=== PATIENT | female | born 1980 | race Caucasian/White ===

== ENCOUNTER 2020-04-14 12:02 | Emergency (ER) | payer OTHER ==
[~2020-04-14] VITALS: Ht 162.6 cm; Wt 127.9 kg
[~2020-04-14 12:02] MED LIST: ACYCLOVIR 200200 MG PO; APAP500 PO; AZITHROMYCIN250 MG PO; CALCIUM500 MG PO; CENTRUM SILVER1 EAC4 PO; COLACE 100 MG100 MG PO; DERMOPLAST SPRA56 ML; FLEXERIL PO; HYDROCODON-ACE1 EAC8 PO; HYDROCODONE-AP1 EAC6 PO; HYDROCORTISONE30 G9 RE; IBUPROFEN 800800 M1 PO; IRON325; LANSOPRAZOLE30 MG PO; LATUDA40 MG PO; LIPITOR 20 MG T20 M1 PO; LISINOPRIL2.5 M1 PO; LYRICA150 MG PO; MACROBID 100 M100 M1 PO; MAGNESIUM250 M1 PO; MARLISSA1 EACH PO; METFORMIN HCL500 MG PO; NORFLEX100 MG PO; POTASSIUM20 PO; PRENATAL; PROMETHAZINE12.5 M1 PO; SERTRALINE HCL100 MG PO; TESSALON PERLE100 MG PO; TOPAMAX100 MG PO; TUCKS MEDICATE1 EAC1; ULTRAM 50MG TAB50 MG PO; VITAMIN D1000 UNI1 PO; XANAX 0.5 MG0.5 MG PO; ZPAK PO
[2020-04-14 12:35] LABS: URINE BILIRUBIN NEGATIVE (Negative); URINE BLOOD 1+ (Negative); URINE CLARITY CLEAR; URINE COLOR YELLOW; URINE GLUCOSE-RANDOM* NEGATIVE (Negative); URINE KETONES NEGATIVE (Negative); URINE LEUKOCYTES-REFLEX NEGATIVE (Negative); URINE NITRITE-REFLEX NEGATIVE (Negative); URINE PROTEIN (DIPSTICK) NEGATIVE (Negative); URINE SPECIFIC GRAVITY >= 1.030 (1.005-1.035)
[2020-04-14 12:46] LABS: SQUAMOUS 0-3 Few /LPF (0-3)
[2020-04-14 12:47] LABS: CRYSTALS None Seen /LPF (None Seen); HYALINE CASTS 0-3 Few /LPF (None Seen); MUCUS 4-6 Moderate strn/LPF (None Seen)
[2020-04-14 12:48] LABS: URINE WBC-REFLEX 0-5 Rare /HPF (0-5)
[2020-04-14 12:49] LABS: BACTERIA-REFLEX 1-9 Few /HPF (None Seen); URINE RBC 0-2 Rare /HPF (0-2)
[2020-04-14 12:51] LABS: ABSOLUTE NEUTROPHILS 12.3 thou/uL (1.4-8.2); BASOPHILS 0.4 % (0.0-2.0); EOSINOPHILS 0.2 % (0.0-3.0); HEMATOCRIT 37.7 % (37.0-47.0); HEMOGLOBIN 12.2 gm/dL (12.0-15.0); LYMPHOCYTES 7.9 % (24.0-44.0); MCHC 32.3 g/dL (28.0-37.0); MCV 89.7 fL (80.0-100.0); MONOCYTES 3.6 % (1.0-8.0); PLATELET COUNT 196 thou/uL (150-400); POLYS 87.9 % (36.0-66.0); RDW 13.6 % (10.5-14.5)
[2020-04-14 13:06] LABS: ALBUMIN 3.1 g/dL (3.4-5.0); ANION GAP 12 mmol/L (7-16); BUN 9 mg/dL (7-18); CALCIUM 8.5 mg/dL (8.5-10.1); CHLORIDE 106 mmol/L (98-107); CO2 20 mmol/L (21-32); CREATININE 0.9 mg/dL (0.6-1.0); DIRECT BILIRUBIN < 0.1 mg/dL (<0.1-0.2); GLUCOSE 243 mg/dL (74-106); LIPASE 72 U/L (73-393); SGOT 15 U/L (15-37); SGPT 19 U/L (14-59); SODIUM 138 mmol/L (136-145); TOTAL BILIRUBIN 0.3 mg/dL (0.2-1.0); TOTAL PROTEIN 6.8 g/dL (6.4-8.2)
[2020-04-14 13:11] LABS: POTASSIUM 2.8 mmol/L (3.5-5.1)
[2020-04-14] MEDS ORDERED: KLOR-CON M2020 MEQ PO (15:18)
[2020-04-14] MEDS ORDERED: LEVOFLOXACIN750 MG PO (15:18)
[2020-04-14 16:06] VITALS: BP 120/67
== END 2020-04-14 16:30 | disposition home or self-care (01) ==
LOC: ER 12:02
PROVIDERS: Nurse Practitioner
DX: N39.0 Urinary tract infection, site not specified (principal); E87.6 Hypokalemia; J18.9 Pneumonia, unspecified organism; E87.2 Acidosis; E11.9 Type 2 diabetes mellitus without complications; I10 Essential (primary) hypertension; E78.00 Pure hypercholesterolemia, unspecified; K21.9 Gastro-esophageal reflux disease without esophagitis; Z98.890 Other specified postprocedural states; Z90.49 Acquired absence of other specified parts of digestive tract; Z79.2 Long term (current) use of antibiotics; Z79.899 Other long term (current) drug therapy

== ENCOUNTER 2020-05-07 13:21 | Emergency (ER) | payer OTHER ==
[~2020-05-07] VITALS: Ht 162.6 cm; Wt 127.5 kg
[~2020-05-07 13:21] MED LIST changes: +KLOR-CON M2020 MEQ PO; +LEVOFLOXACIN750 MG PO
[2020-05-07 14:42] LABS: URINE BILIRUBIN NEGATIVE (Negative); URINE BLOOD NEGATIVE (Negative); URINE CLARITY CLEAR; URINE COLOR YELLOW; URINE GLUCOSE-RANDOM* NEGATIVE (Negative); URINE KETONES NEGATIVE (Negative); URINE LEUKOCYTES-REFLEX NEGATIVE (Negative); URINE NITRITE-REFLEX NEGATIVE (Negative); URINE PROTEIN (DIPSTICK) NEGATIVE (Negative); URINE UROBILINOGEN 0.2 E.U./dl (0.2-1.0)
[2020-05-07 15:30] VITALS: BP 122/76
--- NOTE | 2020-05-10 10:22 | EKG ---
[address] [address] ELECTROCARDIOGRAM REPORT Name: DIANA BROWNING Room #: [facility]#: [id number] Admission: 05/07/20 Attend Phys: Discharge: 05/07/20 Date of : 78 Report #: [id number] [facility] ED Test Date: 2020-05-07 Test Time: 13:26:34 Pat Name: DIANA BROWNING Department: Room: Gender: F Shear Tender: GAYLA : 1980 Requested By: Ronald Murcia Order Number: [id number] MD: Ross Bartholomew Measurements Intervals [place] Rate: 96 P: 41 [place]: 141 QRS: 10 QRSD: 88 T: 27 QT: 343 QTc: 434 Interpretive Statements Sinus rhythm Compared to ECG 03/14/2020 10:18:22 Sinus tachycardia no longer present Prolonged QT interval no longer present Electronically Signed On 05-10-2020 10:21:45 COMMERCIAL MANAGER by Ross Bartholomew [email or web address] <ELECTRONICALLY SIGNED> By: Ross Bartholomew MD, [facility] 05/10/20 1021 1326 1326 Ross Bartholomew MD, FACC /EPI
== END 2020-05-07 15:31 | disposition home or self-care (01) ==
LOC: ER 13:21
PROVIDERS: Nurse Practitioner
DX: R07.89 Other chest pain (principal); R05 Cough; R06.00 Dyspnea, unspecified; E11.9 Type 2 diabetes mellitus without complications; K21.9 Gastro-esophageal reflux disease without esophagitis; I10 Essential (primary) hypertension; E78.00 Pure hypercholesterolemia, unspecified; Z20.822 Contact with and (suspected) exposure to COVID-19; Z79.2 Long term (current) use of antibiotics; Z79.899 Other long term (current) drug therapy

== ENCOUNTER 2020-06-19 13:24 | Emergency (ER) | payer OTHER ==
[~2020-06-19] VITALS: Ht 162.6 cm; Wt 127.0 kg
[2020-06-19 13:49] LABS: URINE BILIRUBIN NEGATIVE (Negative); URINE BLOOD NEGATIVE (Negative); URINE CLARITY SL CLOUDY; URINE COLOR YELLOW; URINE GLUCOSE-RANDOM* NEGATIVE (Negative); URINE KETONES NEGATIVE (Negative); URINE NITRITE-REFLEX NEGATIVE (Negative); URINE PROTEIN (DIPSTICK) NEGATIVE (Negative); URINE SPECIFIC GRAVITY 1.025 (1.005-1.035); URINE UROBILINOGEN 0.2 E.U./dl (0.2-1.0)
[2020-06-19 13:50] LABS: URINE LEUKOCYTES-REFLEX 2+ (Negative)
[2020-06-19 13:54] LABS: BACTERIA-REFLEX 1-9 Few /HPF (None Seen); CASTS None Seen /LPF (None Seen); CRYSTALS None Seen /LPF (None Seen); SQUAMOUS >10 Many /LPF (0-3); URINE RBC None Seen /HPF (0-2); URINE WBC-REFLEX 0-5 Rare /HPF (0-5)
[2020-06-19 14:25] LABS: ABSOLUTE NEUTROPHILS 14.9 thou/uL (1.4-8.2); BASOPHILS 0.1 % (0.0-2.0); EOSINOPHILS 0.2 % (0.0-3.0); HEMATOCRIT 34.4 % (37.0-47.0); HEMOGLOBIN 11.4 gm/dL (12.0-15.0); LYMPHOCYTES 7.5 % (24.0-44.0); MCH 28.9 pg (26.0-34.0); MCHC 33.1 g/dL (28.0-37.0); MCV 87.3 fL (80.0-100.0); PLATELET COUNT 201 thou/uL (150-400); POLYS 88.2 % (36.0-66.0); RBC 3.94 mil/uL (4.20-5.00); RDW 13.5 % (10.5-14.5); WBC 16.8 thou/uL (4.0-11.0)
[2020-06-19 14:27] LABS: ANION GAP 14 mmol/L (7-16); BUN 10 mg/dL (7-18); CALCIUM 8.2 mg/dL (8.5-10.1); CHLORIDE 104 mmol/L (98-107); CO2 21 mmol/L (21-32); GLUCOSE 174 mg/dL (74-106); POTASSIUM 3.1 mmol/L (3.5-5.1); SODIUM 139 mmol/L (136-145)
[2020-06-19 14:38] LABS: ALBUMIN 2.9 g/dL (3.4-5.0); AMYLASE 55 U/L (25-115); DIRECT BILIRUBIN < 0.1 mg/dL (<0.1-0.2); LIPASE 61 U/L (73-393); MAGNESIUM 1.6 mg/dL (1.8-2.4); PHOSPHORUS 2.8 mg/dL (2.6-4.7); SGOT 12 U/L (15-37); SGPT 18 U/L (14-59); TOTAL BILIRUBIN 0.4 mg/dL (0.2-1.0); TOTAL PROTEIN 6.8 g/dL (6.4-8.2); TROPONIN-I <0.06 ng/mL (<0.06)
[2020-06-19] MEDS ORDERED: VANACOF DM LIQ240 ML PO (16:41)
[2020-06-19] MEDS ORDERED: TYLENOL325 M1 PO (16:41)
[2020-06-19] MEDS ORDERED: NAPROSYN500 MG PO (16:41)
[2020-06-19] MEDS ORDERED: DOXYCYCLINE 10100 MG PO (16:41)
[2020-06-19 16:52] VITALS: BP 105/58
--- NOTE | 2020-06-20 11:29 | EKG ---
[address] [address] ELECTROCARDIOGRAM REPORT Name: DIANA BROWNING Room #: [facility]#: [id number] Admission: 06/19/20 Attend Phys: Discharge: 06/19/20 Date of : 78 Report #: [id number] [facility] ED Test Date: 2020-06-19 Test Time: 14:19:14 Pat Name: DIANA BROWNING Department: Room: Gender: F Motor Patrol Operator: GAYLA : 1980 Requested By: Bill Petersen Order Number: [id number] MD: Ross Bartholomew Measurements Intervals [place] Rate: 98 P: 41 [place]: 135 QRS: 17 QRSD: 93 T: 13 QT: 334 QTc: 427 Interpretive Statements Sinus rhythm Compared to ECG 05/07/2020 13:26:34 No significant changes Electronically Signed On 06-20-2020 11:28:52 CDT by Ross Bartholomew [email or web address] <ELECTRONICALLY SIGNED> By: Ross Bartholomew MD, [facility] 06/20/20 1128 1419 1419 Ross Bartholomew MD, FACC /EPI
== END 2020-06-19 16:52 | disposition home or self-care (01) ==
LOC: ER 13:24
PROVIDERS: Emergency Medicine
DX: J18.9 Pneumonia, unspecified organism (principal); I10 Essential (primary) hypertension; E11.9 Type 2 diabetes mellitus without complications; K21.9 Gastro-esophageal reflux disease without esophagitis; E78.5 Hyperlipidemia, unspecified; Z90.49 Acquired absence of other specified parts of digestive tract; Z79.2 Long term (current) use of antibiotics; Z79.899 Other long term (current) drug therapy

== ENCOUNTER 2020-07-03 12:15 | Inpatient (IN) | payer OTHER ==
[~2020-07-03] VITALS: Ht 162.6 cm; Wt 132.9 kg
[~2020-07-03 12:15] MED LIST changes: +DOXYCYCLINE 10100 MG PO; +NAPROSYN500 MG PO; +TYLENOL325 M1 PO; +VANACOF DM LIQ240 ML PO
[2020-07-03 12:33] VITALS: BP 102/59
[2020-07-03 13:03] LABS: ABSOLUTE NEUTROPHILS 14.2 thou/uL (1.4-8.2); BASOPHILS 0.3 % (0.0-2.0); EOSINOPHILS 0.2 % (0.0-3.0); HEMATOCRIT 35.4 % (37.0-47.0); HEMOGLOBIN 11.9 gm/dL (12.0-15.0); LYMPHOCYTES 4.5 % (24.0-44.0); MCH 29.1 pg (26.0-34.0); MCHC 33.5 g/dL (28.0-37.0); MCV 86.6 fL (80.0-100.0); MONOCYTES 3.7 % (1.0-8.0); PLATELET COUNT 228 thou/uL (150-400); POLYS 91.3 % (36.0-66.0); RBC 4.09 mil/uL (4.20-5.00); RDW 13.6 % (10.5-14.5); WBC 15.5 thou/uL (4.0-11.0)
[2020-07-03 13:12] LABS: CALCIUM 8.7 mg/dL (8.5-10.1); CREATININE 1.1 mg/dL (0.6-1.0)
[2020-07-03 13:26] LABS: ALBUMIN 3.1 g/dL (3.4-5.0); TOTAL BILIRUBIN 0.4 mg/dL (0.2-1.0); TOTAL PROTEIN 7.2 g/dL (6.4-8.2)
[2020-07-03 14:02] LABS: BE(vivo) -4.5 mmol/L (-2 to +3); HCO3 19.1 mmol/L (22.0-26.0); PCO2 30.7 mmHg (35.0-45.0); PO2 72.4 mmHg (80.0-100.0); pH 7.412 (7.360-7.450)
[2020-07-03 15:42] VITALS: BP 102/59
[2020-07-03 16:30] LABS: FOLIC ACID 21.9 ng/mL (8.6-58.9)
[2020-07-03 19:55] VITALS: BP 129/64
[2020-07-04 00:04] VITALS: BP 100/49
[2020-07-04 04:37] VITALS: BP 110/56
[2020-07-04 05:36] LABS: GLYCOHEMOGLOBIN (HGB A1C) 5.6 % (4.8-5.6)
[2020-07-04 05:49] LABS: ABSOLUTE NEUTROPHILS 7.1 thou/uL (1.4-8.2); BASOPHILS 0.4 % (0.0-2.0); EOSINOPHILS 1.3 % (0.0-3.0); HEMATOCRIT 28.5 % (37.0-47.0); LYMPHOCYTES 19.7 % (24.0-44.0); MCH 29.4 pg (26.0-34.0); MCHC 33.7 g/dL (28.0-37.0); MCV 87.2 fL (80.0-100.0); MONOCYTES 4.4 % (1.0-8.0); PLATELET COUNT 204 thou/uL (150-400); POLYS 74.2 % (36.0-66.0); RBC 3.27 mil/uL (4.20-5.00); RDW 13.8 % (10.5-14.5); WBC 9.6 thou/uL (4.0-11.0)
[2020-07-04 05:50] LABS: HEMOGLOBIN 9.6 gm/dL (12.0-15.0)
[2020-07-04 06:17] LABS: ALBUMIN 2.4 g/dL (3.4-5.0); CALCIUM 7.7 mg/dL (8.5-10.1); CREATININE 0.8 mg/dL (0.6-1.0); MAGNESIUM 1.9 mg/dL (1.8-2.4); PHOSPHORUS 2.8 mg/dL (2.5-4.9); POTASSIUM 3.3 mmol/L (3.5-5.1); TOTAL BILIRUBIN 0.3 mg/dL (0.2-1.0); TOTAL PROTEIN 5.9 g/dL (6.4-8.2)
[2020-07-04 07:50] VITALS: BP 110/67
--- NOTE | 2020-07-04 08:34 | HC ---
[facility] [place] [address] CONSULTATION Name: DIANA BROWNING Room #: 352-P [facility] IN M.R.#: [id number] Admission: 07/03/20 Attend Phys: Prudence Davis MD Discharge: Date of : 78 Report #: [id number] THIS REPORT FOR: cc: Everardo Marks James DO Barry, Joseph W. MD ~ DATE OF SERVICE: 07/04/2020 INFECTIOUS DISEASE CONSULTATION REASON FOR EVALUATION: Nonresolving pneumonitis. HISTORY OF PRESENT ILLNESS: Chart reviewed, patient examined. This is a 40-year-old woman with diabetes mellitus, obstructive sleep apnea, diagnosed with pneumonia, roughly 2 weeks ago, seen in the ER visit and followup for possible primary care, had been on antibiotics. I believe doxycycline had not improved, had a persistent nonproductive cough, generalized myalgias, weakness, and poor p.o. intake. She represented to the Emergency Room. On the day of admission, chest x-ray confirmed bilateral nature of her pneumonitis. ABGs show pH 7.412, pCO2 of 30.7, pO2 of 72.4 on room air. Procalcitonin was borderline elevated at 1.15. Lactic acid is 1.9. Urinary antigens were negative as were influenza antigen. She is not requiring supplemental oxygen at this point. Generally feels poorly and has likely responded to some hydration. Empirically started on combination therapy with Zosyn and Levaquin. ALLERGIES: None known. CURRENT MEDICATIONS: Include acyclovir, cholecalciferol, hydrocodone, alprazolam, topiramate, pregabalin, Zosyn, levofloxacin, and insulin lispro. PAST MEDICAL HISTORY: As above, noted diabetes mellitus, hypertension, sleep apnea, previous gastric sleeve procedure in 2017, bipolar disease, and morbid obesity. SOCIAL HISTORY: Nonsmoker, no ethanol, no illicit drug use. FAMILY HISTORY: Noncontributory. REVIEW OF SYSTEMS: Otherwise, unremarkable 10-point review of systems. PHYSICAL EXAMINATION: GENERAL: She is somewhat flat in affect. She has njsu-qx-vpxmokdc distress. She appears somewhat chronically ill. She is obese, generally lucid. VITAL SIGNS: Temperature 98.3, pulse 78, respirations 18, and blood pressure 110/56. [address] [address] CONSULTATION Name: DIANA BROWNING Room #: 352-P [facility] IN .R.#: [id number] Admission: 07/03/20 Attend Phys: Prudence Davis MD Discharge: Date of : 78 Report #: [id number] SKIN: Warm, dry, no rashes. HEENT: Normocephalic. Extraocular muscles are intact. NECK: Supple. She is not requiring supplemental oxygen at this point. LUNGS: Few scattered coarse breath sounds. HEART: Regular, distant. I do not appreciate any murmur. ABDOMEN: Obese, large pannus, somewhat firm, nontender. EXTREMITIES: No cyanosis. GENITOURINARY AND RECTAL: Deferred. LABORATORY DATA: Blood cultures sterile thus far collected yesterday. Electrolytes: Sodium is 143, potassium 3.3, chloride 111, bicarbonate is 22, anion gap of 10, BUN and creatinine 9 and 0.8, and glucose of 95. LFTs are unremarkable. Albumin of 2.4, total protein 5.9, estimated GFR of 79. CBC: White count 9.6, hemoglobin is 9.6, is down from 11.9, hematocrit 28.5, and platelets of 204. Risk factor screen was normal range at 10.3. BRADLEY is pending. Coronavirus PCR was negative. Second one is pending. Sed rate of 18. Troponin less than is 0.06. Influenza antigen is negative. Urinary antigen for Legionella and pneumococcus are negative as well. Lactic acid is 1.9. TSH of 0.816. ABGs described above. ASSESSMENT AND PLAN: Bilateral pneumonitis apparently been chronic nonresolving clinically has been initiated on empiric broad-spectrum antimicrobial therapy that should give us both typical and atypical coverage. At this point, she is not overtly toxic, but there is a fairly extended course. We will see how she responds. In the event of lack of improvement, we would consider intervention __ bronchoscopy to exclude some sort of atypical process. Thank you. We will follow. <ELECTRONICALLY SIGNED> By: Michele Cummings MD 07/04/20 0834 0759 0819 Michele Cummings MD /nt
--- NOTE | 2020-07-04 11:04 | EKG ---
[address] [place] [address] ELECTROCARDIOGRAM REPORT Name: DIANA BROWNING Room #: 352- [facility] IN M.R.#: [id number] Admission: 07/03/20 Attend Phys: Prudence Davis MD Discharge: Date of : 78 Report #: [id number] [facility] ED Test Date: 2020-07-03 Test Time: 13:05:44 Pat Name: DIANA BROWNING Department: [facility] Gender: F Embroiderer Hand: jnkaila : 1980 Requested By: Prosper Morales Order Number: [id number] MD: Toni Mayo Measurements Intervals [place] Rate: 109 P: 28 [place]: 129 QRS: -3 QRSD: 91 T: 9 QT: 328 QTc: 442 Interpretive Statements Sinus tachycardia Probable left atrial enlargement Low voltage, precordial leads Borderline T abnormalities, anterior leads Baseline wander in lead(s) V1 Compared to ECG 06/19/2020 14:19:14 Low QRS voltage now present T-wave abnormality now present Sinus rhythm no longer present Electronically Signed On 07-04-2020 11:04:31 CDT by Toni Mayo [email or web address] <ELECTRONICALLY SIGNED> By: Toni Mayo MD 07/04/20 1104 1305 1305 Toni Mayo MD /EPI
[2020-07-04 11:39] VITALS: BP 114/62
[2020-07-04 15:30] VITALS: BP 115/59
[2020-07-04 16:05] LABS: HEMATOCRIT 32.2 % (37.0-47.0); HEMOGLOBIN 11.1 gm/dL (12.0-15.0)
[2020-07-04 19:45] VITALS: BP 139/78
--- NOTE | 2020-07-05 00:46 | NUR ---
PT PROGRESSING TOWARDS D/C GOALS VSS AFEBRILE LUNGS SOND CLEAR DIM BASES. UNLABORED ON RA. MEDICATED FOR C/O GENERALIZED PAIN, BACK, LEGS, SHOULDERS ETC. PRESENTLY SHE IS RESTING QUIETLY. NO S/S DISTRESS.
[2020-07-05 03:47] VITALS: BP 127/74
--- NOTE | 2020-07-05 04:50 | NUR ---
PT NPO AFTER MN FOR BARRIUM SWALLOW. VSS. NO S/S DISTRESSW. EXPLAINED NEED FOR STOOL SAMPLE.
[2020-07-05 06:03] LABS: ABSOLUTE NEUTROPHILS 3.9 thou/uL (1.4-8.2); BASOPHILS 0.4 % (0.0-2.0); EOSINOPHILS 1.8 % (0.0-3.0); HEMATOCRIT 30.7 % (37.0-47.0); HEMOGLOBIN 10.2 gm/dL (12.0-15.0); LYMPHOCYTES 30.5 % (24.0-44.0); MCHC 33.2 g/dL (28.0-37.0); MCV 87.3 fL (80.0-100.0); MONOCYTES 5.7 % (1.0-8.0); PLATELET COUNT 204 thou/uL (150-400); POLYS 61.6 % (36.0-66.0); RBC 3.51 mil/uL (4.20-5.00); WBC 6.4 thou/uL (4.0-11.0)
[2020-07-05 06:17] LABS: OBSERVED RETIC COUNT 1.53 % (0.6-2.6)
[2020-07-05 06:38] LABS: CALCIUM 8.4 mg/dL (8.5-10.1); CREATININE 0.8 mg/dL (0.6-1.0); PHOSPHORUS 2.7 mg/dL (2.5-4.9); POTASSIUM 3.5 mmol/L (3.5-5.1)
[2020-07-05 06:56] LABS: % SATURATION 7 % (20-39); IRON 24 ug/dL (50-170); TIBC 346 ug/dL (250-450)
[2020-07-05 07:11] VITALS: BP 110/67
[2020-07-05] MEDS ORDERED: PROTONIX 20 MG20 MG PO (14:48)
[2020-07-05] MEDS ORDERED: LEVOFLOXACIN750 MG PO (14:51)
[2020-07-05 15:22] VITALS: BP 126/78
[2020-07-05 15:32] VITALS: BP 126/78
[2020-07-06 11:07] LABS: ANA INTERPRETATION Negative (Negative)
== END 2020-07-05 16:34 | disposition home or self-care (01) | DRG 871 ==
LOC: ER 12:15 → 3W 14:05 → EROBS 14:05 → 3W 16:21
PROVIDERS: Hospitalist; Internal Medicine Pulmonary Disease; Physician Assistant; ADMIT Internal Medicine; ATTEND Internal Medicine
DX: A41.9 Sepsis, unspecified organism (principal); J18.1 Lobar pneumonia, unspecified organism; J69.0 Pneumonitis due to inhalation of food and vomit; N17.9 Acute kidney failure, unspecified; A69.20 Lyme disease, unspecified; Z68.43 Body mass index [BMI] 50.0-59.9, adult; I10 Essential (primary) hypertension; K21.9 Gastro-esophageal reflux disease without esophagitis; E11.65 Type 2 diabetes mellitus with hyperglycemia; E87.6 Hypokalemia; E66.01 Morbid (severe) obesity due to excess calories; E78.5 Hyperlipidemia, unspecified; E78.00 Pure hypercholesterolemia, unspecified; G47.33 Obstructive sleep apnea (adult) (pediatric); M79.7 Fibromyalgia; M48.00 Spinal stenosis, site unspecified; M54.9 Dorsalgia, unspecified; G89.29 Other chronic pain; J45.909 Unspecified asthma, uncomplicated; D64.9 Anemia, unspecified; E11.42 Type 2 diabetes mellitus with diabetic polyneuropathy; Z90.49 Acquired absence of other specified parts of digestive tract; Z98.84 Bariatric surgery status; Z87.01 Personal history of pneumonia (recurrent); Z20.822 Contact with and (suspected) exposure to COVID-19
CPT/HCPCS: 10879

== ENCOUNTER → 2020-08-20 | Outpatient (CLI) | payer OTHER ==
[~2020-08-20] MED LIST changes: +PROTONIX 20 MG20 MG PO
== END ==
LOC: RAD 10:07
PROVIDERS: ATTEND Internal Medicine Pulmonary Disease
DX: R91.8 Other nonspecific abnormal finding of lung field (principal)

== ENCOUNTER 2020-12-07 16:07 | Emergency (ER) | payer OTHER ==
[~2020-12-07] VITALS: Ht 162.6 cm; Wt 127.0 kg
[2020-12-07 16:30] LABS: ABSOLUTE NEUTROPHILS 15.7 thou/uL (1.4-8.2); BASOPHILS 0.6 % (0.0-2.0); EOSINOPHILS 0.2 % (0.0-3.0); HEMATOCRIT 35.5 % (37.0-47.0); HEMOGLOBIN 11.5 gm/dL (12.0-15.0); LYMPHOCYTES 6.2 % (24.0-44.0); MCH 27.6 pg (26.0-34.0); MCHC 32.4 g/dL (28.0-37.0); MCV 85.4 fL (80.0-100.0); MONOCYTES 3.5 % (1.0-8.0); PLATELET COUNT 205 thou/uL (150-400); POLYS 89.5 % (36.0-66.0); RBC 4.15 mil/uL (4.20-5.00); RDW 14.8 % (10.5-14.5); WBC 17.5 thou/uL (4.0-11.0)
[2020-12-07 16:45] LABS: ANION GAP 13 mmol/L (7-16); BUN 9 mg/dL (7-18); CALCIUM 8.5 mg/dL (8.5-10.1); CHLORIDE 107 mmol/L (98-107); CO2 21 mmol/L (21-32); GLUCOSE 129 mg/dL (74-106); POTASSIUM 3.3 mmol/L (3.5-5.1); SODIUM 141 mmol/L (136-145)
[2020-12-07 16:57] LABS: DIRECT BILIRUBIN < 0.1 mg/dL (<0.1-0.2); LIPASE 57 U/L (73-393); SGOT 12 U/L (15-37); SGPT 18 U/L (14-59); TOTAL BILIRUBIN 0.3 mg/dL (0.2-1.0); TOTAL PROTEIN 7.2 g/dL (6.4-8.2)
[2020-12-07 18:16] LABS: URINE BILIRUBIN NEGATIVE (Negative); URINE BLOOD NEGATIVE (Negative); URINE CLARITY CLEAR; URINE COLOR YELLOW; URINE GLUCOSE-RANDOM* NEGATIVE (Negative); URINE KETONES NEGATIVE (Negative); URINE LEUKOCYTES-REFLEX NEGATIVE (Negative); URINE NITRITE-REFLEX NEGATIVE (Negative); URINE PROTEIN (DIPSTICK) NEGATIVE (Negative); URINE SPECIFIC GRAVITY 1.025 (1.005-1.035)
[2020-12-07] MEDS ORDERED: LEVOFLOXACIN750 MG PO (19:39)
[2020-12-07 20:03] VITALS: BP 141/70
--- NOTE | 2020-12-08 09:23 | EKG ---
[address] [address] ELECTROCARDIOGRAM REPORT Name: DIANA BROWNING Room #: [facility]#: [id number] Admission: 12/07/20 Attend Phys: Discharge: 12/07/20 Date of : 78 Report #: [id number] [facility] ED Test Date: 2020-12-07 Test Time: 16:12:20 Pat Name: DIANA BROWNING Department: Room: Gender: F Medical Screener: ELIZABETH : 1980 Requested By: Xin Lane Order Number: [id number] MD: Ross Bartholomew Measurements Intervals [place] Rate: 108 P: 49 SD: 157 QRS: 15 QRSD: 89 T: 9 QT: 324 QTc: 435 Interpretive Statements Sinus tachycardia Compared to ECG 07/03/2020 13:05:44 T-wave abnormality no longer present Electronically Signed On 12-08-2020 9:23:35 CDT by Ross Bartholomew [email or web address] <ELECTRONICALLY SIGNED> By: Ross Bartholomew MD, [facility] 12/08/20 09 161 1612 Ross Bartholomew MD, FACC /EPI
== END 2020-12-07 20:03 | disposition home or self-care (01) ==
LOC: ER 16:07
PROVIDERS: Emergency Medicine; Nurse Practitioner
DX: J18.9 Pneumonia, unspecified organism (principal); K21.9 Gastro-esophageal reflux disease without esophagitis; I10 Essential (primary) hypertension; E11.9 Type 2 diabetes mellitus without complications; E66.9 Obesity, unspecified; F31.9 Bipolar disorder, unspecified; Z90.49 Acquired absence of other specified parts of digestive tract; Z79.899 Other long term (current) drug therapy; Z79.891 Long term (current) use of opiate analgesic; Z79.1 Long term (current) use of non-steroidal anti-inflammatories (NSAID)

== ENCOUNTER 2020-12-09 16:19 | Emergency (ER) | payer OTHER ==
[~2020-12-09] VITALS: Ht 162.6 cm; Wt 127.0 kg
[2020-12-09 16:24] VITALS: BP 138/79
== END 2020-12-09 17:08 | disposition home or self-care (01) ==
LOC: ER 16:19
DX: J18.9 Pneumonia, unspecified organism (principal); Z20.822 Contact with and (suspected) exposure to COVID-19; I10 Essential (primary) hypertension; E11.9 Type 2 diabetes mellitus without complications; K21.9 Gastro-esophageal reflux disease without esophagitis; F31.9 Bipolar disorder, unspecified; Z90.49 Acquired absence of other specified parts of digestive tract; Z90.89 Acquired absence of other organs; Z79.899 Other long term (current) drug therapy; Z79.891 Long term (current) use of opiate analgesic

== ENCOUNTER → 2020-12-10 | Outpatient (CLI) | payer OTHER ==
[2020-12-11 04:06] LABS: IgA 218 mg/dL (87-352); IgG 934 mg/dL (586-1602); IgM 82 mg/dL (26-217)
== END ==
LOC: CAT 10:30
PROVIDERS: ATTEND Internal Medicine Pulmonary Disease
DX: R91.8 Other nonspecific abnormal finding of lung field (principal)

== ENCOUNTER → 2021-01-17 | Outpatient (CLI) | payer OTHER | LOC: RAD 13:25 | PROVIDERS: ATTEND Internal Medicine Pulmonary Disease | DX: R06.02 Shortness of breath (principal); R91.8 Other nonspecific abnormal finding of lung field ==

== ENCOUNTER 2021-03-08 08:29 | Emergency (ER) | payer OTHER ==
[~2021-03-08] VITALS: Ht 162.6 cm; Wt 127.5 kg
[2021-03-08 09:12] LABS: ABSOLUTE NEUTROPHILS 4.8 thou/uL (1.4-8.2); BASOPHILS 0.3 % (0.0-2.0); EOSINOPHILS 0.5 % (0.0-3.0); HEMATOCRIT 37.6 % (37.0-47.0); HEMOGLOBIN 12.3 gm/dL (12.0-15.0); MCH 27.9 pg (26.0-34.0); MCHC 32.7 g/dL (28.0-37.0); MCV 85.4 fL (80.0-100.0); MONOCYTES 4.2 % (1.0-8.0); PLATELET COUNT 194 thou/uL (150-400); RBC 4.41 mil/uL (4.20-5.00); RDW 14.7 % (10.5-14.5)
[2021-03-08 09:33] LABS: ALBUMIN 3.2 g/dL (3.4-5.0); ANION GAP 13 mmol/L (7-16); BUN 15 mg/dL (7-18); CALCIUM 8.6 mg/dL (8.5-10.1); CHLORIDE 109 mmol/L (98-107); CO2 20 mmol/L (21-32); CREATININE 0.9 mg/dL (0.6-1.0); GLUCOSE 129 mg/dL (74-106); SGOT 11 U/L (15-37); SGPT 16 U/L (30-65); SODIUM 142 mmol/L (136-145); TOTAL BILIRUBIN 0.2 mg/dL (0.2-1.0); TOTAL PROTEIN 7.1 g/dL (6.4-8.2)
[2021-03-08 10:24] VITALS: BP 101/61
[2021-03-08] MEDS ORDERED: DOXYCYCLINE 10100 MG PO ×2 (11:02→11:06)
[2021-03-08] MEDS ORDERED: KLOR-CON M2020 MEQ PO (11:04)
--- NOTE | 2021-03-09 07:40 | EKG ---
[place] [address] [email or web address] [place] [address] ELECTROCARDIOGRAM REPORT Name: DIANA BROWNING Room #: [facility]#: [id number] Admission: 03/08/21 Attend Phys: Discharge: 03/08/21 Date of : 78 Report #: [id number] [facility] ED Test Date: 2021-03-08 Test Time: 08:40:04 Pat Name: DIANA BROWNING Department: Room: Gender: F Child Therapist: [id number] : 1980 Requested By: Maira Chery Order Number: [id number] MD: Nito Mcallister Measurements Intervals [place] Rate: 113 P: 44 [place]: 148 QRS: 17 QRSD: 89 T: -4 QT: 322 QTc: 442 Interpretive Statements Sinus tachycardia Borderline T wave abnormalities Compared to ECG 12/07/2020 16:12:20 T-wave abnormality now present Electronically Signed On 03-09-2021 7:40:03 YEAST FERMENTATION ATTENDANT by Nito Mcallister [email or web address] <ELECTRONICALLY SIGNED> By: Nito Mcallister MD, [facility] 03/09/2140 08 Nito Mcallister MD, FACC /EPI
== END 2021-03-08 11:10 | disposition home or self-care (01) ==
LOC: ER 08:29
PROVIDERS: Student in an Organized Health Care Education/Training Program
DX: J18.9 Pneumonia, unspecified organism (principal); Z20.822 Contact with and (suspected) exposure to COVID-19; I10 Essential (primary) hypertension; E11.9 Type 2 diabetes mellitus without complications; E66.9 Obesity, unspecified; Z90.49 Acquired absence of other specified parts of digestive tract; Z79.899 Other long term (current) drug therapy

== ENCOUNTER 2021-05-09 11:58 | Emergency (ER) | payer OTHER ==
[~2021-05-09] VITALS: Ht 162.6 cm; Wt 126.1 kg
[2021-05-09 12:03] VITALS: BP 130/66
[2021-05-09] MEDS ORDERED: LEVOFLOXACIN750 MG PO (13:32)
[2021-05-09] MEDS ORDERED: TESSALON PERLE100 MG PO (13:32)
[2021-05-09] MEDS ORDERED: NAPROSYN500 MG PO (13:32)
== END 2021-05-09 15:02 | disposition home or self-care (01) ==
LOC: ER 11:58
DX: J18.9 Pneumonia, unspecified organism (principal); I10 Essential (primary) hypertension; E11.9 Type 2 diabetes mellitus without complications; E66.9 Obesity, unspecified; Z90.49 Acquired absence of other specified parts of digestive tract